=== PATIENT | female | born 1965 | race Caucasian/White ===

== ENCOUNTER → 2017-06-26 | Outpatient (CLI) | payer OTHER | END | disposition home or self-care (01) | LOC: RAD 15:52 | DX: R06.02 Shortness of breath (principal) ==

== ENCOUNTER 2018-07-02 14:46 | Outpatient (CLI) | payer OTHER | END 2018-07-02 15:05 | disposition home or self-care (01) | LOC: RAD 14:46 | DX: M79.673 Pain in unspecified foot (principal) ==

== ENCOUNTER 2025-04-18 16:55 | Emergency (ER) | payer OTHER ==
[~2025-04-18] VITALS: Ht 152.4 cm; Wt 49.4 kg
[2025-04-18] MEDS ORDERED: RESTASIS MULTI5.5 ML OP (17:17)
[2025-04-18] MEDS ORDERED: DEXAMETHASONE SODIUM PHOSPHATE 4 MG/ML VIAL IM ONE (17:45)
[2025-04-18] MEDS ORDERED: ORPHENADRINE CITRATE 30 MG/ML AMPUL IM ONE (17:45)
[2025-04-18] MEDS ORDERED: ACETAMINOPHEN 500 MG GEL..CAP PO ONE ×2 (17:45→18:27)
[2025-04-18] MEDS ORDERED: DEXAMETHASONE SODIUM PHOSPHATE 4 MG/ML VIAL ONE (18:27)
[2025-04-18] MEDS ORDERED: ORPHENADRINE CITRATE 30 MG/ML AMPUL ONE (18:27)
[2025-04-18] MEDS ORDERED: ZANAFLEX4 MG PO (21:18)
[2025-04-18] MEDS ORDERED: TYLENOL ARTHRI650 MG PO (21:18)
== END 2025-04-18 17:20 | disposition home or self-care (01) ==
LOC: ER 16:56
DX: S29.8XXA Other specified injuries of thorax, initial encounter (principal); V49.88XA Car occupant (driver) (passenger) injured in other specified transport accidents, initial encounter; Y93.89 Activity, other specified; Y92.89 Other specified places as the place of occurrence of the external cause; Y99.8 Other external cause status; M54.2 Cervicalgia; G44.319 Acute post-traumatic headache, not intractable; M54.9 Dorsalgia, unspecified; Z88.6 Allergy status to analgesic agent; Z88.8 Allergy status to other drugs, medicaments and biological substances
CPT/HCPCS: 70450; 71260; 72125; Q9965